=== PATIENT | female | born 1945 | race American Indian/Alaskan Native ===

== ENCOUNTER 2017-01-10 08:43 | Outpatient (CLI) | payer MEDICARE ==
--- NOTE | 2017-01-10 09:56 | Mammography Report ---
BILATERAL MAMMOGRAM: FINDINGS: The breasts are almost entirely fat (<25% glandular). No mass, distortion, suspicious calcification, or skin change is seen. No significant change noted when compared to exams dating back to 2015. CAD was utilized. IMPRESSION: Negative mammogram. There is no mammographic evidence of malignancy. RECOMMENDATION: Follow-up per ACS guidelines. BI-RADS CATEGORY: 1 = Negative ACR BI-RADS MAMMOGRAPHIC CODES: 0 = Needs additional imaging evaluation; 1 = Negative; 2 = Benign; 3 = Probably benign; 4 = Suspicious; 5 = Malignant; 6 = Known biopsy-proven malignancy COMMENT: 1. Dense breast tissue, i.e., adenosis, fibrocystic changes, etc., may obscure an underlying neoplasm. 2. Approximately 10% of cancers are not detected with mammography. 3. A negative mammography report should not delay biopsy if a clinically suspicious mass is present. COMMENT: Patient follow-up letters are generated in [employer].
== END 2017-01-10 08:44 | disposition home or self-care (01) ==
LOC: MAMMO 08:43
PROVIDERS: ATTEND Family Medicine
DX: Z12.31 Encounter for screening mammogram for malignant neoplasm of breast (principal)
CPT/HCPCS: 77067; G0202

== ENCOUNTER 2017-11-14 07:47 | Day surgery (SDC) | payer MEDICARE ==
[2017-11-14 08:53] LABS: INR 1.19 (0.87-1.13)
[2017-11-14 08:54] LABS: Partial Thromboplastin Time 31.4 Sec. (24.2-36.6)
--- NOTE | 2017-11-14 09:37 | Short Stay Summary ---
Short Stay Documentation Date of service: 11/14/17 - History Principal diagnosis: pleural fluid Past Medical History: cancer, other Past Surgical History: Other (right tunneled chest tube) Social history: no significant social history - Allergies and Medications Current Medications: Allergies No Known Allergies Allergy (Verified 10/14/17 05:33) Home Medications Medication Instructions Recorded Confirmed Last Taken Type Aspirin [Adult Low Dose Aspirin EC] 81 mg PO DAILY 10/14/17 11/14/17 11/13/17 History Fenofibric Acid (Choline) 135 mg PO QDAY 10/14/17 11/14/17 11/13/17 History [Trilipix] Latanoprost 0.005% 1 drop OU HS 10/14/17 11/14/17 11/13/17 History Multivitamin Tab [Multiple Vitamin 1 each PO QDAY 10/14/17 11/14/17 11/13/17 History TAB (Theragran)] traMADol [Ultram 50 MG tab] 50 mg PO Q8HR PRN 10/14/17 11/14/17 11/10/17 History traZODone [Desyrel] 100 mg PO QHS 10/14/17 11/14/17 11/13/17 History ALBUTEROL NEB's [Proventil 0.083% 2.5 mg IH Q4HRT PRN #30 nebu 11/01/1711/13/17 Rx NEBS] Albuterol Sulfate [Ventolin HFA] 1 - 2 puff IH Q6H PRN #30 11/01/17 11/14/17 Rx [email or web address] Amlodipine Besylate/Valsartan 1 each PO DAILY #30 tablet 11/01/17 11/14/1711/13 Rx [Amlodipine-Valsartan 10-320 mg] Fenofibrate [Tricor] 145 mg PO DAILY #30 tablet 11/01/17 11/14/17 11/13/17 Rx Labetalol [Normodyne TAB] 100 mg PO BID #60 tablet 11/01/17 11/14/17 11/13/17 Rx Metformin HCl [Glucophage] 1,000 mg PO BID #60 tablet 11/01/17 11/14/17 Rx Pantoprazole [Protonix TAB] 40 mg PO DAILY #30 tablet 11/01/17 11/14/17 Rx [place] 7.5-325 mg TAB 1 tab PO PRN PRN 11/14/17 11/14/17 11/14/17 06:00 History Tiotropium [place] [Spiriva 2 puff IH DAILY 11/14/17 11/14/17 11/13/17 History Respimat] Active Medications Lidocaine (Xylocaine 2%) 20 ml INFILTRATI ONCE ONE Stop: 11/14/17 09:34 - Physical exam General appearance: no acute distress Lungs: Normal air movement Breasts: deferred Gastrointestinal: normal Female Genitourinary: deferred Rectal Exam: deferred - Brief post op/procedure progress note Date of procedure: 11/14/17 Pre-op diagnosis: pleural fluid Post-op diagnosis: same Procedure: left thoracentesis Anesthesia: local Surgeon: REGINA RICO Estimated blood loss: none Specimen disposition: to lab Condition: stable - Disposition Condition at discharge: Good Disposition: DC- TO HOME OR SELFCARE Short Stay Discharge Plan Activity: advance as tolerated Weight Bearing Status: Weight Bear as Tolerated Diet: regular Wound: keep clean and dry, per your surgeon's advice Follow up with: NUBIA BUTLER MD [Primary Care Provider] - 7 Days
[2017-11-14] MEDS ORDERED: XYLOCAINE 2% INFILTRATI NR (10:00)
[2017-11-14] MEDS ORDERED: NORCO 5/325 PO ONE (10:47)
--- NOTE | 2017-11-14 11:36 | XRay Report ---
AP CHEST: HISTORY: Status post left thoracentesis Recent left thoracentesis was performed. Near-complete evacuation of the left pleural fluid is demonstrated. There is hazy opacity throughout the left lung consistent with infiltrate, atelectasis or edema. The right lung is generally clear. Trace right pleural effusion is suspected. Mild cardiomegaly is noted. No pneumothorax. IMPRESSION: No pneumothorax is visualized.
--- NOTE | 2017-11-14 12:19 | Ultrasound Report ---
Exam: Ultrasound guided thoracentesis Clinical indication: Patient with recurrent loculated left pleural effusions Date: 11/14/2017 Procedure: Following the explanation of the risks, benefits and alternatives; written informed consent was obtained. Patient was brought to the ultrasound suite and placed in a seated position. Ultrasound evaluation of her left hemithorax demonstrated a multiple loculated fluid collections within her chest. The patient's lower back was prepped and draped in the usual sterile fashion. 1% lidocaine was used for anesthesia. Under ultrasound guidance, a 5 Pashto eLibs.comeh needle was advanced into the pleural fluid. A total of 310 mL's of dark reddish pleural fluid was aspirated. Sample sent for laboratory analysis. The needle was removed and hemostasis achieved using manual compression. A sterile dressing was applied. The patient tolerated the procedure well. A post procedure chest x-ray performed one hour after the procedure demonstrated no pneumothorax Impression: Ultrasound guided thoracentesis with 310 mL's of dark reddish pleural fluid aspirated. A sample sent for laboratory analysis. Given the patient's loculation, the patient may benefit from a decortication versus infusing TPA through the catheter in attempt to break up the loculations.
[2017-11-14 13:03] VITALS: BP 120/63
== END 2017-11-14 11:40 | disposition home or self-care (01) ==
LOC: CATHLABREC 07:47 → EDSTATUS 09:00 → CATHLABREC 11:40
PROVIDERS: ATTEND Internal Medicine Hematology
DX: C34.92 Malignant neoplasm of unspecified part of left bronchus or lung (principal); J90 Pleural effusion, not elsewhere classified; I51.7 Cardiomegaly; I10 Essential (primary) hypertension; J44.9 Chronic obstructive pulmonary disease, unspecified; Z90.710 Acquired absence of both cervix and uterus; Z87.891 Personal history of nicotine dependence; Z79.899 Other long term (current) drug therapy; Z79.82 Long term (current) use of aspirin; Z79.84 Long term (current) use of oral hypoglycemic drugs; Z79.01 Long term (current) use of anticoagulants
CPT/HCPCS: 32555; 36415; 71045; 85610; 85730; 87116; 87186; 88112; 88305

== ENCOUNTER 2017-11-21 09:45 | Emergency (ER) | payer MEDICARE, OTHER ==
[2017-11-21 10:50] LABS: Basophils # (Auto) 0.1 K/mm3 (0.0-0.1); Basophils % (Auto) 0.8 % (0.0-1.8); Eosinophils # (Auto) 0.1 K/mm3 (0.0-0.4); Eosinophils % (Auto) 0.3 % (0.0-4.3); Hematocrit 30.9 % (30.3-42.9); Hemoglobin 9.8 gm/dl (10.1-14.3); Lymphocytes # (Auto) 1.6 K/mm3 (1.2-5.4); Lymphocytes % (Auto) 8.5 % (13.4-35.0); Mean Corpuscular HGB Conc 32 % (30-34); Mean Corpuscular Hemoglobin 27 pg (28-32); Mean Corpuscular Volume 84 fl (79-97); Monocytes # (Auto) 1.1 K/mm3 (0.0-0.8); Monocytes % (Auto) 5.6 % (0.0-7.3); Platelet Count 581 K/mm3 (140-440); Red Blood Count 3.68 M/mm3 (3.65-5.03)
[2017-11-21 11:01] LABS: INR 1.28 (0.87-1.13)
[2017-11-21 11:02] LABS: Partial Thromboplastin Time 36.6 Sec. (24.2-36.6)
[2017-11-21 11:15] LABS: Alanine Aminotransferase 10 units/L (7-56); BUN/Creatinine Ratio 26; Blood Urea Nitrogen 13 mg/dL (7-17); Calcium 9.1 mg/dL (8.4-10.2); Hemolysis Index 11
[2017-11-21 11:25] VITALS: BP 116/77
--- NOTE | 2017-11-21 11:26 | Cat Scan Report ---
CT CHEST WITHOUT CONTRAST: HISTORY: Effusion. COMPARISON: 10/28/17. TECHNIQUE: Helical CT in 1.25mm intervals without IV contrast. Sagittal and coronal reformatted images. FINDINGS: Thyroid gland: Normal. Tracheobronchial tree: Bronchi leading to left upper lobe appear occluded. No bronchiectasis. Esophagus: Normal. Heart: Normal. Pericardium: Normal. Mediastinum: Normal. Lung Tran: Consolidation throughout the left upper lobe and patchy infiltrate in the left lower lobe appears relatively stable since 10/28/17. There is decreased atelectasis or infiltrate in the right lower lobe. A 1.3 cm nodular density in the right apical region is unchanged. Pleural Spaces: Small layering right pleural effusion. Complex loculated left pleural effusion. Musculoskeletal: Thoracic spondylosis. No fracture or suspicious bony lesion. IMPRESSION: No overwhelming change since 10/28/17. There is consolidation throughout the left upper lobe and patchy infiltrate in the left lower lobe. Minimal improvement in the right lung atelectasis or infiltrate. Small layering right pleural effusion. Complex larger left pleural effusion which is probably loculated.
--- NOTE | 2017-11-21 11:30 | Emergency Department Report ---
ED General Adult HPI - General Chief complaint: Dyspnea/Respdistress Stated complaint: SOTO Time Seen by Provider: 11/21/17 10:08 Source: patient, EMS Mode of arrival: Stretcher Limitations: Physical Limitation - History of Present Illness Initial comments: Patient presents to emergency department with a chief complaint shortness of breath. Patient has a history of lung cancer that was recently diagnosed less than 6 weeks ago who has had a history of pleural effusions with multiple thoracocentesis been done. Patient was brought to the hospital today to have a port placed for immunotherapy was discovered that she was tachycardic and having issues with breathing. The interventional radiologist was Dr. Marquez feels that the patient needs to be seen at a facility that has a capability of doing VATS -: Gradual Radiation: non-radiation Severity scale (0 -10): 0 Consistency: constant Improves with: none Worsens with: none Associated Symptoms: denies other symptoms Treatments Prior to Arrival: none - Related Data Home Medications Medication Instructions Recorded Confirmed Last Taken Aspirin [Adult Low Dose Aspirin EC] 81 mg PO DAILY 10/14/17 11/14/17 11/13/17 Fenofibric Acid (Choline) 135 mg PO QDAY 10/14/17 11/14/17 11/13/17 [Trilipix] Latanoprost 0.005% 1 drop OU HS 10/14/17 11/14/17 11/13/17 Multivitamin Tab [Multiple Vitamin 1 each PO QDAY 10/14/17 11/14/17 11/13/17 TAB (Theragran)] traMADol [Ultram 50 MG tab] 50 mg PO Q8HR PRN 10/14/17 11/14/17 11/10/17 traZODone [Desyrel] 100 mg PO QHS 10/14/17 11/14/17 11/13/17 [place] 7.5-325 mg TAB 1 tab PO PRN PRN 11/14/17 11/14/17 11/14/17 06:00 Tiotropium [place] [Spiriva 2 puff IH DAILY 11/14/17 11/14/17 11/13/17 Respimat] Previous Rx's Medication Instructions Recorded Last Taken Type ALBUTEROL NEB's [Proventil 0.083% 2.5 mg IH Q4HRT PRN #30 nebu 11/01/17 Rx NEBS] Albuterol Sulfate [Ventolin HFA] 1 - 2 puff IH Q6H PRN #30 11/01/17 11/13/17 Rx hfa.[email or web address] Amlodipine Besylate/Valsartan 1 each PO DAILY #30 tablet 11/01/17 11/13/17 Rx [Amlodipine-Valsartan 10-320 mg] Fenofibrate [Tricor] 145 mg PO DAILY #30 tablet 11/01/17 11/13/17 Rx Labetalol [Normodyne TAB] 100 mg PO BID #60 tablet 11/01/17 11/13/17 Rx Metformin HCl [Glucophage] 1,000 mg PO BID #60 tablet 11/01/17 11/13/17 Rx Pantoprazole [Protonix TAB] 40 mg PO DAILY #30 tablet 11/01/17 11/13/17 Rx levoFLOXacin [Levaquin] 750 mg PO QDAY #5 tablet 11/21/17 Unknown Rx Allergies Allergy/AdvReac Type Severity Reaction Status Date / Time No Known Allergies Allergy Verified 10/14/17 05:33 ED Review of Systems ROS: Stated complaint: SOTO Other details as noted in HPI Constitutional: denies: chills, fever Eyes: denies: eye pain, eye discharge, vision change ENT: denies: ear pain, throat pain Respiratory: shortness of breath. denies: cough, wheezing Cardiovascular: denies: chest pain, palpitations Endocrine: no symptoms reported Gastrointestinal: denies: abdominal pain, nausea, diarrhea Genitourinary: denies: urgency, dysuria, discharge Musculoskeletal: denies: back pain, joint swelling, arthralgia Skin: denies: rash, lesions Neurological: denies: headache, weakness, paresthesias Psychiatric: denies: anxiety, depression Hematological/Lymphatic: denies: easy bleeding, easy bruising ED Past Medical Hx - Past Medical History Hx Hypertension: Yes Hx CVA: No Hx Heart Attack/AMI: No Hx Congestive Heart Failure: No Hx Diabetes: Yes Hx Deep Vein Thrombosis: No Hx Pulmonary Embolism: No Hx GERD: No Hx Renal Disease: No Hx Sickle Cell Disease: No Hx Arthritis: No Hx Headaches / Migraines: No Hx Seizures: No Hx Kidney Stones: No Hx Psychiatric Treatment: No Hx Asthma: No Hx COPD: Yes Hx Tuberculosis: No Hx Dementia: No Hx HIV: No Additional medical history: stage 4 lung cancer - Surgical History Hx Coronary Stent: No Hx Open Heart Surgery: No Hx Pacemaker: No Hx Internal Defibrillator: No Hx Cholecystectomy: No Hx Appendectomy: No Hx Breast Surgery: No Additional Surgical History: hysterectomy, drainage tube placed in plural space - Social History Smoking Status: Former Smoker Substance Use Type: None - Medications Home Medications: Home Medications Medication Instructions Recorded Confirmed Last Taken Type Aspirin [Adult Low Dose Aspirin EC] 81 mg PO DAILY 10/14/17 11/14/17 11/13/17 History Fenofibric Acid (Choline) 135 mg PO QDAY 10/14/17 11/14/17 11/13/17 History [Trilipix] Latanoprost 0.005% 1 drop OU HS 10/14/17 11/14/17 11/13/17 History Multivitamin Tab [Multiple Vitamin 1 each PO QDAY 10/14/17 11/14/17 11/13/17 History TAB (Theragran)] traMADol [Ultram 50 MG tab] 50 mg PO Q8HR PRN 10/14/17 11/14/17 11/10/17 History traZODone [Desyrel] 100 mg PO QHS 10/14/17 11/14/17 11/13/17 History ALBUTEROL NEB's [Proventil 0.083% 2.5 mg IH Q4HRT PRN #30 nebu 11/01/1711/13/17 Rx NEBS] Albuterol Sulfate [Ventolin HFA] 1 - 2 puff IH Q6H PRN #30 11/01/17 11/14/17 Rx [email or web address] Amlodipine Besylate/Valsartan 1 each PO DAILY #30 tablet 11/01/17 11/14/1711/13 Rx [Amlodipine-Valsartan 10-320 mg] Fenofibrate [Tricor] 145 mg PO DAILY #30 tablet 11/01/17 11/14/17 11/13/17 Rx Labetalol [Normodyne TAB] 100 mg PO BID #60 tablet 11/01/17 11/14/17 11/13/17 Rx Metformin HCl [Glucophage] 1,000 mg PO BID #60 tablet 11/01/17 11/14/17 Rx Pantoprazole [Protonix TAB] 40 mg PO DAILY #30 tablet 11/01/17 11/14/17 Rx [place] 7.5-325 mg TAB 1 tab PO PRN PRN 11/14/17 11/14/17 11/14/17 06:00 History Tiotropium [place] [Spiriva 2 puff IH DAILY 11/14/17 11/14/17 11/13/17 History Respimat] levoFLOXacin [Levaquin] 750 mg PO QDAY #5 tablet 11/21/17 Unknown Rx ED Physical Exam - General Limitations: Physical Limitation General appearance: alert, in no apparent distress - Head Head exam: Present: atraumatic, normocephalic - Eye Eye exam: Present: normal appearance, PERRL, EOMI - ENT ENT exam: Present: mucous membranes moist - Neck Neck exam: Present: normal inspection - Respiratory Respiratory exam: Present: other (No BS on left side). Absent: respiratory distress - Cardiovascular Cardiovascular Exam: Present: regular rate, normal rhythm. Absent: systolic murmur, diastolic murmur, rubs, gallop - GI/Abdominal GI/Abdominal exam: Present: soft, normal bowel sounds. Absent: distended, tenderness - Extremities Exam Extremities exam: Present: normal inspection - Back Exam Back exam: Present: normal inspection - Neurological Exam Neurological exam: Present: alert, oriented X3, CN II-XII intact. Absent: motor sensory deficit - Psychiatric Psychiatric exam: Present: normal affect, normal mood - Skin Skin exam: Present: warm, dry, intact, normal color. Absent: rash ED Course Vital Signs 11/21/17 11/21/17 11/21/17 10:21 10:30 10:51 Pulse Rate 96 H Respiratory 20 20 18 Rate Blood Pressure 121/65 O2 Sat by Pulse 100 97 97 Oximetry 11/21/17 11/21/17 11/21/17 10:58 11:00 11:16 Pulse Rate 97 H 96 H 97 H Respiratory 22 31 H 14 Rate Blood Pressure 116/77 116/77 116/77 O2 Sat by Pulse 98 99 100 Oximetry 11/21/17 14:02 Pulse Rate Respiratory 18 Rate Blood Pressure O2 Sat by Pulse Oximetry ED Medical Decision Making - Lab Data Result diagrams: 11/21/17 10:38 11/21/17 10:39 Lab Results 11/21/17 11/21/17 11/21/17 Range/Units 10:38 10:39 10:39 WBC 19.0 H (4.5-11.0) K/mm3 RBC 3.68 (3.65-5.03) M/mm3 Hgb 9.8 L (10.1-14.3) gm/dl Hct 30.9 (30.3-42.9) % MCV 84 (79-97) fl MCH 27 L (28-32) pg MCHC 32 (30-34) % RDW 15.0 (13.2-15.2) % Plt Count 581 H (140-440) K/mm3 Lymph % (Auto) 8.5 L (13.4-35.0) % [place] % (Auto) 5.6 (0.0-7.3) % Eos % (Auto) 0.3 (0.0-4.3) % Baso % (Auto) 0.8 (0.0-1.8) % Lymph # 1.6 (1.2-5.4) K/mm3 [place] # 1.1 H (0.0-0.8) K/mm3 Eos # 0.1 (0.0-0.4) K/mm3 Baso # 0.1 (0.0-0.1) K/mm3 Seg Neutrophils % 84.8 H (40.0-70.0) % Seg Neutrophils # 16.1 H (1.8-7.7) K/mm3 PT 16.5 H (12.2-14.9) Sec. INR 1.28 H (0.87-1.13) APTT 36.6 (24.2-36.6) Sec. Sodium 135 L (137-145) mmol/L Potassium 4.3 (3.6-5.0) mmol/L Chloride 95.6 L (98-107) mmol/L Carbon Dioxide 26 (22-30) mmol/L Anion Gap 18 mmol/L BUN 13 (7-17) mg/dL Creatinine 0.5 L (0.7-1.2) mg/dL Estimated GFR > 60 ml/min BUN/Creatinine Ratio 26 % Glucose 130 H (65-100) mg/dL Calcium 9.1 (8.4-10.2) mg/dL Total Bilirubin 0.40 (0.1-1.2) mg/dL AST 21 (5-40) units/L ALT 10 (7-56) units/L Alkaline Phosphatase 52 (35-129) units/L Total Protein 6.4 (6.3-8.2) g/dL Albumin 3.0 L (3.9-5) g/dL Albumin/Globulin Ratio 0.9 % - Radiology Data Referring Physician: EMLONY TINAJERO Patient Name: RASHMI MCKEON Date of : 1945 Sex: Female Report Date: 2017-11-21 Report Status: Finalized [facility] [address] [place] [address] Cat Scan Report Signed Patient: RASHMI MCKEON MR#: [id number] : 1945 Acct:[id number] Age/Sex: 72 / F ADM Date: 11/21/17 Loc: ED Attending Dr: Ordering Physician: MELONY TINAJERO MD Date of Service: 11/21/17 Procedure(s): CT chest wo con Accession Number(s): [id number] cc: MELONY TINAJERO MD CT CHEST WITHOUT CONTRAST: HISTORY: Effusion. COMPARISON: 10/28/17. TECHNIQUE: Helical CT in 1.25mm intervals without IV contrast. Sagittal and coronal reformatted images. FINDINGS: Thyroid gland: Normal. Tracheobronchial tree: Bronchi leading to left upper lobe appear occluded. No bronchiectasis. Esophagus: Normal. Heart : Normal. Pericardium: Normal. Mediastinum: Normal. Lung Tran: Consolidation throughout the left upper lobe and patchy infiltrate in the left lower lobe appears relatively stable since 10/28/17. There is decreased atelectasis or infiltrate in the right lower lobe. A 1.3 cm nodular density in the right apical region is unchanged. Pleural Spaces: Small layering right pleural effusion. Complex loculated left pleural effusion. Musculoskeletal: Thoracic spondylosis. No fracture or suspicious bony lesion. IMPRESSION: No overwhelming change since 10/28/17. There is consolidation throughout the left upper lobe and patchy infiltrate in the left lower lobe. Minimal improvement in the right lung atelectasis or infiltrate. Small layering right pleural effusion. Complex larger left pleural effusion which is probably loculated. Transcribed By: TTR Dictated By: MAURO MONTENEGRO JR, MD Electronically Authenticated By: MAURO MONTENEGRO JR, MD Signed Date/Time: 11/21/171124 DD/ 20 TD/TT: 1124 - Medical Decision Making Discussed with the patient the plan of care and if she wished to have a surgical procedure done and the patient stated that she would be okay with having a procedure done to help her with the buildup of fluid loss. Contacted multiple facilities and at this time is less than the patient follow- up as outpatient and there is no need for transfer since the patient is hemodynamically stable and has a drain in place and is receiving thoracocentesis here Was discussed with the patient and she felt like she was ready to go home I contacted Dr. Mo again and discussed what had been done and he is aware of the patient will be going home Critical care attestation.: If time is entered above; I have spent that time in minutes in the direct care of this critically ill patient, excluding procedure time. ED Disposition Clinical Impression: Pleural effusion, Lung cancer Disposition: DC-01 TO HOME OR SELFCARE Is pt being admited?: No Does the pt Need Aspirin: No Condition: Stable Instructions: Pleural Effusion (ED) Additional Instructions: return if worse Prescriptions: levoFLOXacin [Levaquin] 750 mg PO QDAY #5 tablet Referrals: TAMEKA WALDRON MD [Staff Physician] - 3-5 Days Time of Disposition: 16:39
--- NOTE | 2017-11-21 12:00 | XRay Report ---
AP CHEST: HISTORY: Short of breath Patchy infiltrate is present throughout the left lung. Right lung is generally clear. Cardiac silhouette appears mildly enlarged. A small left pleural effusion is suspected. No pneumothorax. IMPRESSION: Left lung infiltrate.
[2017-11-21] MEDS ORDERED: LEVAQUIN 750MG/150ML 750 MG/150 ML BAG IV ONE (12:54)
[2017-11-21] MEDS ORDERED: PERCOCET 5/325 PO ONE (13:43)
== END 2017-11-21 17:03 | disposition home or self-care (01) ==
LOC: ED 09:45
DX: C34.92 Malignant neoplasm of unspecified part of left bronchus or lung (principal); J90 Pleural effusion, not elsewhere classified; I10 Essential (primary) hypertension; E11.9 Type 2 diabetes mellitus without complications; J44.9 Chronic obstructive pulmonary disease, unspecified; Z90.710 Acquired absence of both cervix and uterus; Z87.891 Personal history of nicotine dependence; Z79.82 Long term (current) use of aspirin
CPT/HCPCS: 36415; 71045; 71250; 80053; 85025; 85610; 85730; 96365; 99285; J1956